=== PATIENT | female | born 1985 | race American Indian/Alaskan Native ===

== ENCOUNTER 2020-02-10 11:29 | Emergency (ER) | payer MEDICAID ==
--- NOTE | 2020-02-10 14:03 | EDM.PDOC ---
ED HPI GENERAL MEDICAL PROBLEM - General Chief Complaint: General Stated Complaint: ISSUE WITH FEEDING TUBE Time Seen by Provider: 02/10/20 14:19 Source of Information: Reports: Patient History Limitations: Reports: No Limitations - History of Present Illness INITIAL COMMENTS - FREE TEXT/NARRATIVE: This is a 34 yo female who presents with concerns of fevers and purulent drainage around her gastric feeding tube. She started noticing the drainage several days ago along with increased redness around the g tube site. She has been waking up at night with chills and occasionally with sweats. She has increased pain around the g-tube site as well. Has gastric tube because of esophageal strictures - currently maintaining PO diet. 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 Psychiatric History: Reports: Anxiety, Panic Attack - Past Surgical History GI Surgical History: Reports: Esophageal Dilatation, Other (See Below) Other GI Surgeries/Procedures: gastric feeding tube placed 3 months ago Female Surgical History: Reports: Tubal Ligation Social & Family History - Tobacco Use Smoking Status *Q: Never Smoker - Caffeine Use Caffeine Use: Reports: Coffee - Recreational Drug Use Recreational Drug Use: No ED ROS GENERAL - Review of Systems Review Of Systems: See Below Constitutional: Reports: Fever, Chills HEENT: Reports: No Symptoms Respiratory: Reports: No Symptoms Cardiovascular: Reports: No Symptoms Endocrine: Reports: No Symptoms GI/Abdominal: Reports: Abdominal Pain : Reports: No Symptoms Musculoskeletal: Reports: No Symptoms Skin: Reports: No Symptoms Neurological: Reports: No Symptoms Psychiatric: Reports: No Symptoms Hematologic/Lymphatic: Reports: No Symptoms Immunologic: Reports: No Symptoms ED EXAM, GENERAL - Physical Exam Exam: See Below Exam Limited By: No Limitations General Appearance: Alert, No Apparent Distress Ears: Normal External Exam Nose: Normal Inspection Throat/Mouth: Normal Inspection Head: Atraumatic, Normocephalic Neck: Normal Inspection Respiratory/Chest: Lungs Clear Cardiovascular: Regular Rate, Rhythm GI/Abdominal: Soft, Non-Tender, Other (erythema and purulent drainage around g tube site) Back Exam: Normal Inspection Extremities: Normal Inspection Neurological: Alert, Oriented Psychiatric: Normal Affect, Normal Mood Skin Exam: Warm, Dry Course - Vital Signs Last Recorded V/S: Last Vital Signs Temp 36.9 C 02/10/20 12:51 Pulse 83 02/10/20 12:51 Resp 16 02/10/20 12:51 BP 103/58 L 02/10/20 12:51 Pulse Ox 99 02/10/20 12:51 - Orders/Labs/Meds Labs: Laboratory Tests 02/10/20 02/10/20 02/10/20 Range/Units 14:26 14:26 16:12 WBC 6.2 (4.5-11.0) K/uL RBC 3.31 (3.30-5.50) M/uL Hgb 10.5 L (12.0-15.0) g/dL Hct 34.4 L (36.0-48.0) % MCV 104 H (80-98) fL MCH 32 H (27-31) pg MCHC 31 L (32-36) % Plt Count 376 (150-400) K/uL Sodium 139 L (140-148) mmol/L Potassium 4.2 (3.6-5.2) mmol/L Chloride 103 (100-108) mmol/L Carbon Dioxide 27 (21-32) mmol/L Anion Gap 13.2 (5.0-14.0) mmol/L BUN 10 (7-18) mg/dL Creatinine 0.6 (0.6-1.0) mg/dL Est Cr Clr Drug Dosing 99.33 mL/min Estimated GFR (MDRD) > 60 (>60) Glucose 95 (74-106) mg/dL Calcium 8.9 (8.5-10.1) mg/dL Total Bilirubin 0.4 (0.2-1.0) mg/dL Direct Bilirubin 0.18 (0.0-0.2) mg/dL Indirect Bilirubin 0.22 AST 23 (15-37) U/L ALT 22 (12-78) U/L Alkaline Phosphatase 76 (46-116) U/L Total Protein 8.0 (6.4-8.2) g/dL Albumin 3.5 (3.4-5.0) g/dL Globulin 4.5 H (2.3-3.5) g/dL Albumin/Globulin Ratio 0.8 L (1.2-2.2) Meds: Medications Discontinued Medications Generic Name Dose Route Start Last Admin Trade Name Danielle PRN Reason Stop Dose Admin Sodium Chloride 70 mls @ 3.5 mls/sec 02/10/20 14:30 02/10/20 15:14 Normal Saline IV 02/10/20 14:31 3.5 mls/sec ASDIRECTED DEDRICK Administration Iopamidol 72 ml 02/10/20 14:23 02/10/20 15:13 Isovue-300 (61%) IV 02/10/20 14:24 72 ml ONETIME ONE Administration Sodium Chloride 10 ml 02/10/20 14:23 02/10/20 15:13 Saline Flush FLUSH 02/10/20 14:24 10 ml ONETIME ONE Administration - Re-Assessments/Exams Free Text/Narrative Re-Assessment/Exam: 34 yo who presents with concerns of pain, erythema, purulent drainage at g tube site. She has some symptoms of systemic illness, evidence of at least infected g tube tract. With her degree of abdominal discomfort I am concerned she may have developed an abscess. We are going to obtain a CT to assess for this. 02/10/20 15:21 Free Text/Narrative Re-Assessment/Exam: CT without abscess, did show some GB abnormality but LFTs are normal and low suspicion for cholecystitis. Will prescribe doxycycline for superficial infection of G tube tract. Can follow up with her physician on February 17, return to ER for worsening. 02/10/20 16:52 Departure - Departure Time of Disposition: 16:54 Disposition: Home, Self-Care 01 Clinical Impression: G-tube site cellulitis - Discharge Information Instructions: Cellulitis, Adult Referrals: PCP,None [Primary Care Provider] - Forms: ED Department Discharge Additional Instructions: Please take the prescribed antibiotic. Follow up with your doctor on February 17 Return to the ER for signs of worsening infection such as increased redness, discharge, or pain as discussed. Take tylenol for pain as directed (not more that 4,000 mg daily) Sepsis Event Note (ED) - Evaluation Sepsis Screening Result: No Definite Risk - Focused Exam Vital Signs: Vital Signs Temp Pulse Resp BP Pulse Ox 02/10/20 12:51 36.9 C 83 16 103/58 L 99 02/10/20 12:30 36.9 C 83 16 103/58 L 99
[2020-02-10] MEDS ORDERED: Sodium Chloride 0.9% 10 ML Syringe FLUSH ONE (14:23)
[2020-02-10] MEDS ORDERED: Iopamidol 612 MG/ML 500 ML Multipack Bottle IV ONE (14:23)
--- NOTE | 2020-02-10 15:46 | CT ---
Abdomen Pelvis w Cont CLINICAL HISTORY: Fevers, drainage from feeding tube COMPARISON: None. TECHNIQUE: Transverse scans were obtained from the base of the lungs to the pubic symphysis following oral contrast and IV infusion of contrast.Auto dosage reduction and iterative reconstructiontechniques employed. FINDINGS: The lung bases are clear. The liver shows generalized prominence of the left lobe of the liver which extends to the left the lateral abdominal margin. There is no mass or biliary dilatation. The gallbladder shows mild generalized gallbladder wall prominence without focal mass. The spleen has normal size and shape. The patient has a gastrostomy tube in place. No free air is identified. No abnormal fluid collections are seen. The pancreas shows no mass or inflammatory change. The adrenal glands appear normal bilaterally . The kidneys show no mass, stones or hydronephrosis. The ureters have a normal course and caliber. The aorta has a normal caliber. There is no suspicious retroperitoneal adenopathy. There is a 3.5 x 2.4 x 2.6 cm low-attenuation focus in the left adnexal region which is likely a cyst. No free pelvic fluid is identified. Bladder has normal contour. IMPRESSION: Gastrostomy tube in place. There is no significant inflammatory change or abnormal fluid collection associated with the tube. Mild prominence of the gallbladder wall of questionable significance. If clinically relevant gallbladder ultrasound is a consideration. Left adnexal cyst Prominent left lobe of the liver extending to the left lateral abdominal wall. This may represent anatomic variant
== END 2020-02-10 17:12 | disposition home or self-care (01) ==
LOC: JP.ED 11:29
DX: K94.22 Gastrostomy infection (principal); L03.311 Cellulitis of abdominal wall
CPT/HCPCS: 36415; 74177; 80048; 80076; 85027; 99284; J7050; Q9967; 99283